=== PATIENT | male | born 1985 | race Caucasian/White ===

== ENCOUNTER 2016-12-22 08:00 | Inpatient (IN) | payer MEDICARE, OTHER ==
[~2016-12-22] VITALS: Ht 170.2 cm; Wt 59.0 kg
--- NOTE | ~2016-12-22 | PN ---
Unit #: [id number] #: [id number] Patient: RICHY SHEPPARD [id number] [facility] [address] [place] [address] [id number] I MR#: [id number] NAME: RICHY SHEPPARD ROOM: 15 Age: 31 Sex: M Admission Date: 12/22/2016 : 1985 Attending Physician: Luís Pedersen M.D. Admitting Physician: Luís Pedersen M.D. Primary Care Physician: Adithya Doctor Not In System [facility] PROGRESS NOTES DATE 12/28/2016 DISCUSSION The patient is beginning to show some signs of improvement when seen today. He is less pressured and tangential and seems more insightful. He is compliant with his aggressively dosed medication and his progress is today encouraging. Dictated by... Luís Pedersen M.D. GERALDINE/sreedhar TD: 12/28/2016 15:36 JOB #: [id number] [facility] PROGRESS NOTES Page 1 of 1 X Luís Pedersen MD PROGRESS NOTE
--- NOTE | ~2016-12-22 | HP ---
Unit #: [id number] #: [id number] Patient: RICHY SHEPPARD [id number] [place] [address] [id number] I MR#: [id number] NAME: RICHY SHEPPARD ROOM: P173 Age: 31 Sex: M Admission Date: 12/22/2016 : 1985 Attending Physician: Luís Pedersen M.D. Admitting Physician: Luís Pedersen M.D. Primary Care Physician: Generic Doctor Not In System HISTORY AND PHYSICAL HISTORY OF PRESENT ILLNESS The patient is a 31-year-old male admitted to [facility] on 12/22/2016 for paranoia and psychosis. When attempting to assess the patient he was extremely psychotic and could not answer questions appropriately. Some information was retrieved from his chart however even on intake information was not able to be obtained. PAST MEDICAL HISTORY None noted. PAST SURGICAL HISTORY None noted. SOCIAL HISTORY He is disabled. He lives with his father, smokes one to three cigarettes per day. FAMILY MEDICAL HISTORY Noncontributory. ALLERGIES Cogentin and meclizine. CURRENT MEDICATIONS 1. Effexor 2. Fioricet 3. Gabapentin 4. Tramadol 5. Mobic 6. Lamictal REVIEW OF SYSTEMS The patient did not answer questions about review of systems. PHYSICAL EXAM GENERAL: He is in no acute distress. VITAL SIGNS: Temperature 97.3, heart rate 66, respiration 16, blood pressure 152/92. HEIGHT: 5'7". WEIGHT: 130 pounds. SKIN: Warm and dry without rash or lesion. HEENT: Normocephalic. TMs not viewed. Oral and nasal passages clear. Conjunctivae clear. PERRLA. EOMs intact. Unit #: [id number] #: [id number] Patient: RICHY SHEPPARD NECK: Supple without lymphadenopathy or thyromegaly. HEART: Regular rate and rhythm without murmur. LUNGS: Clear. ABDOMEN: Soft, nontender. : Not done. EXTREMITIES: No evidence of cyanosis, clubbing or edema. Moves all without focal deficit. NEUROLOGICAL: Grossly within normal limits. Cranial Nerves: II: Visual ba are intact. III, IV AND : Extraocular movements are intact. Pupils are equal, round and reactive to light. V: Facial sensation is grossly normal. VII: Facial movements and expression are normal. VIII: Auditory acuity grossly intact. IX, X: Uvula is midline. Phonation is normal. XI: Patient shrugs shoulders and turns head normally. XII: Tongue protrudes in the midline. Sensory and Motor Function: Sensory and motor sensation is grossly normal. Motor: moves all extremities well. IMPRESSION 1. Psychiatric admission. 2. Psychosis. RECOMMENDATIONS Psychiatric per psychiatrist. MEDICAL: No contraindication to participate in facility activities. MEDICAL PROGNOSIS Fair. MEDICAL CONDITION Stable. Dictated by... Antonella Fitch/kimberlee TD: 12/24/2016 00:12 JOB #: [id number] HISTORY AND PHYSICAL Page 1 of 1 X AVERY GARCIA APRN HISTORY AND PHYSICAL
--- NOTE | ~2016-12-22 | PN ---
Unit #: [id number] #: [id number] Patient: RICHY SHEPPARD [id number] [facility] [address] [place] [address] [id number] I MR#: [id number] NAME: RICHY SHEPPARD ROOM: P256 Age: 31 Sex: M Admission Date: 12/22/2016 : 1985 Attending Physician: Luís Pedersen M.D. Admitting Physician: Luís Pedersen M.D. Primary Care Physician: Generic Doctor Not In System [facility] PROGRESS NOTES DATE 01/02/2017 DISCUSSION The patient remains pleasant and cooperative in his interactions with peers and staff and has shown remarkable degree of improvement from admission when he was floridly psychotic and disorganized. We continue to await word regarding disposition situation which has been worsened given the fact that the patient has lost his identification, cell phone, etc. Dictated by... Luís Pedersen M.D. GERALDINE/magnus TD: 01/02/2017 13:32 JOB #: [id number] [facility] PROGRESS NOTES Page 1 of 1 X Luís Pedersen MD X PROGRESS NOTE
--- NOTE | ~2016-12-22 | PN ---
Unit #: [id number] #: [id number] Patient: RCIHY SHEPPARD [id number] [facility] [address] [place] [address] [id number] I MR#: [id number] NAME: RICHY SHEPPARD ROOM: P256 Age: 31 Sex: M Admission Date: 12/22/2016 : 1985 Attending Physician: Luís Pedersen M.D. Admitting Physician: Luís Pedersen M.D. Primary Care Physician: Generic Doctor Not In System [facility] PROGRESS NOTES DATE 01/07/2017 DISCUSSION The patient continues to sustain progress though he remains seclusive to room and is somewhat more religiously preoccupied when seen today. The patient continues to express a fear of "being out in society" and we continue to hope that placement at [facility] or similar such facility will be positive at the time of discharge. Dictated by... Luís Pedersen M.D. CB/kimberlee TD: 01/07/2017 20:47 JOB #: [id number] [facility] PROGRESS NOTES Page 1 of 1 X Luís Pedersen MD X PROGRESS NOTE
--- NOTE | ~2016-12-22 | PN ---
Unit #: [id number] #: [id number] Patient: RICHY SHEPPARD [id number] [facility] [address] [place] [address] [id number] MR#: [id number] NAME: RICHY SHEPPARD ROOM: P256 Age: 31 Sex: M Admission Date: 12/22/2016 : 1985 Attending Physician: Luís Pedersen M.D. Admitting Physician: Luís Pedersen M.D. Primary Care Physician: Generic Doctor Not In System [facility] PROGRESS NOTES DATE 01/03/2017 DISCUSSION The patient remains pleasant and cooperative in interactions with peers and staff. It is his hope that his belongings, i.e., his cell phone, ID, etc., will be mailed to the hospital which will facilitate disposition. Dictated by... Luís Pedersen M.D. CB/bzg TD: 01/03/2017 14:30 JOB #: [id number] [facility] PROGRESS NOTES Page 1 of 1 X Luís Pedersen MD PROGRESS NOTE
--- NOTE | ~2016-12-22 | PN ---
Unit #: [id number] #: [id number] Patient: RICHY SHEPPARD [id number] [facility] [address] [place] [address] [id number] I MR#: [id number] NAME: RICHY SHEPAPRD ROOM: P131 Age: 31 Sex: M Admission Date: 12/22/2016 : 1985 Attending Physician: Luís Pedersen M.D. Admitting Physician: Luís Pedersen M.D. Primary Care Physician: Generic Doctor Not In System [facility] PROGRESS NOTES DATE 12/25/2016 DISCUSSION The patient has been transferred to the [address] [place] [address] Unit. He remains floridly psychotic and delusional. Further upward titration of Zyprexa will likely be considered. Dictated by... Luís Pedersen M.D. CB/magnus TD: 12/25/2016 14:58 JOB #: [id number] [facility] PROGRESS NOTES Page 1 of 1 X Luís Pedersen MD PROGRESS NOTE
--- NOTE | ~2016-12-22 | PN ---
Unit #: [id number] #: [id number] Patient: RICHY SHEPPARD [id number] [facility] [address] [place] [address] [id number] I MR#: [id number] NAME: RICHY SHEPPARD ROOM: 15 Age: 31 Sex: M Admission Date: 12/22/2016 : 1985 Attending Physician: Luís Pedersen M.D. Admitting Physician: Luís Pedersen M.D. Primary Care Physician: Generic Doctor Not In System [facility] PROGRESS NOTES DATE 12/29/2016 DISCUSSION The patient seems to be sustaining some degree of improvement as he is less disorganized and psychotic during the last couple of days of interview. He does look to be a possible candidate for referral to [facility], and I will write an order requesting this. Dictated by... Luís Pedersen M.D. CB/bzg TD: 12/29/2016 12:43 JOB #: [id number] [facility] PROGRESS NOTES Page 1 of 1 X Luís Pedersen MD PROGRESS NOTE
--- NOTE | ~2016-12-22 | DS ---
Unit #: [id number] #: [id number] Patient: RICHY SHEPPARD [id number] [place] [address] [id number] I MR#: [id number] NAME: RICHY SHEPPARD ROOM: P256 Age: 31 Sex: M Admission Date: 12/22/2016 : 1985 Discharge Date: 01/10/2017 Attending Physician: Luís Pedersen M.D. Primary Care Physician: Generic Doctor Not In System DISCHARGE SUMMARY REASON FOR ADMISSION The patient is a 31-year-old white male admitted to the [address] [place] [address] unit with increased psychosis and depression. HOSPITAL COURSE The patient was admitted to the [address] [place] [address] unit and was initially admitted to the [facility] but transferred to the [address] [place] [address] unit and eventually ended up on the [address] [place] [address]. During his stay in the hospital the patient was continued on previously prescribed medications including Effexor gabapentin, Fioricet, tramadol, Mobic and lamotrigine. As his stay in the hospital progressed his degree of psychosis was such that olanzapine 30 mg at bedtime was added given his profound psychosis. The patient's response to this medication in addition was fairly unremarkable. On admission to the hospital the patient been paranoid, disorganized in his thinking and bizarre in his behavior but by the time of discharge on 01/10 the patient was pleasant and cooperative and fully oriented exhibiting no disorganization of thought or psychosis. His improvement was simply astounding. Arrangements were made with the patient to go to "[facility]" on 01/10 and discharge was ordered. FINAL DIAGNOSIS 1. Schizoaffective disorder. 2. Migraine headache by history. 3. Osteoarthritis by history. 4. History of traumatic corneal injury. DISPOSITION ON DISCHARGE the patient is discharged on the following medications: 1. Zyprexa 30 mg at bedtime for psychosis. 2. Fioricet 1 tab twice daily p.r.n. headache. 3. Neurontin 300 mg twice daily for anxiety. 4. Mobic 15 mg daily for osteoarthritis. 5. Melatonin 3 mg at h.s. p.r.n. insomnia. 6. Effexor XR 150 mg q.a.m. for depression. 7. Artificial tears 1 to 2 drops q 6 hours p.r.n. dry eyes. 8. Fish oil 1,000 mg once daily for mood supplementation. 9. Ultram 50 mg q 8 hours while awake for pain. DIET AND ACTIVITY No dietary or physical restrictions were placed on the patient at the time of discharge. Followup to take place through the auspices of community mental health resources. The patient's prognosis is fair. Unit #: [id number] #: [id number] Patient: RICHY SHEPPARD Dictated by... Luís Pedersen M.D. CB/kimberlee TD: 01/11/2017 01:02 JOB #: [id number] DISCHARGE SUMMARY Page 1 of 1 X Luís Pedersen MD X DISCHARGE SUMMARY
--- NOTE | ~2016-12-22 | PA ---
Unit #: [id number] #: [id number] Patient: RICHY SHEPPARD [id number] [place] [address] [id number] I MR#: [id number] NAME: RICHY SHEPPARD ROOM: P173 Age: 31 Sex: M Admission Date: 12/22/2016 : 1985 Date of Assessment: 12/23/2016 Attending Physician: Luís Pedersen M.D. Admitting Physician: Luís Pedersen M.D. Primary Care Physician: Generic Doctor Not In System PSYCHIATRIC ASSESSMENT IDENTIFYING INFORMATION The patient is a 31-year-old male admitted and transferred from [facility] in [place] after he had presented there exhibiting paranoid thinking. INFORMANT(S) The patient and chart. RELIABILITY Fair. CHIEF COMPLAINT None given. HISTORY OF PRESENT ILLNESS The patient is a 31-year-old white male who is apparently chronically mentally ill. He reports that his last psychiatric hospitalization was at [facility]. The patient reports that he presented to [facility] yesterday after requesting to be taken there. The patient reports that he was feeling that "society is a problem." He has also voiced delusional thinking related to paranoid thoughts. He has apparently been expelled from the domicile he had previously shared with his father in [place], [place] and is presently homeless and has been for some time. The patient has attempted suicide in the past and was supporting positive suicidal ideation at the time of admission. When seen today the patient is evasive and somewhat bizarre and suspicious during interview. He denies abuse of psychoactive substances and admits to recent of methamphetamine. The patient is on a host of psychotropic medications including Effexor, gabapentin and lamotrigine. PAST PSYCHIATRIC HISTORY As above. PAST MEDICAL HISTORY Significant for a history of osteoarthritis. MEDICATIONS 1. Effexor 2. Fioricet 3. Gabapentin 4. Tramadol 5. Mobic 6. Lamotrigine Unit #: [id number] #: [id number] Patient: RICHY SHEPPARD ALLERGIES Meclizine, Cogentin. FAMILY HISTORY A lot of pain. SOCIAL HISTORY The patient reports that he completed his GED and claims to have served in the [employer]. He also claims to have been and . He denies abuse of psychoactive substances. MENTAL STATUS EXAMINATION At this time reveals the patient to be a well-developed, well-nourished male, appearing his stated age. He is in no apparent physical distress at the time of examination. He is awake, alert, and oriented in all spheres. His mood is somewhat suspicious and irritable. His affect blunted. Speech is purposely and frequently evasive. There are no gross deficits to memory or cognition noted. Intelligence is judged to be in the average range based on fund of knowledge. The patient is less than optimally cooperative during interview. He is currently endorsing positive suicidal ideation. He denies homicidal ideation. He reports positive paranoid and grandiose delusional thinking. His insight and judgement are egregiously impaired. ASSETS AND LIABILITIES ASSETS: To be assessed. LIABILITIES: Lack of resources, homelessness, poor compliance of treatment. DIAGNOSTIC IMPRESSION Schizoaffective disorder. Migraine headache. Osteoarthritis. TREATMENT PLAN The patient remains hospitalized for safety and stabilization. I will transfer him to the [address] [place] [address] unit as he is clearly not capable of participating in [facility] programming to any significant degree. The patient will participate in appropriate [place] and milieu activities. I will start Zyprexa 15 mg at bedtime and p.r.n. Zydis has been added. ESTIMATED LENGTH OF STAY Three to five days. Dictated by... Luís Pedersen M.D. GERALDINE/kimberlee TD: 12/23/2016 23:02 JOB #: [id number] Unit #: [id number] #: [id number] Patient: VALARIE,KELBY PSYCHIATRIC ASSESSMENT Page 1 of 1 X Luís Pedersen MD PSYCHIATRIC ASSESSMENT
--- NOTE | ~2016-12-22 | PN ---
Unit #: [id number] #: [id number] Patient: RICHY SHEPPARD [id number] [facility] [address] [place] [address] [id number] MR#: [id number] NAME: RICHY SHEPPARD ROOM: P256 Age: 31 Sex: M Admission Date: 12/22/2016 : 1985 Attending Physician: Luís Pedersen M.D. Admitting Physician: Luís Pedersen M.D. Primary Care Physician: Generic Doctor Not In System [facility] PROGRESS NOTES DATE 01/09/2017 DISCUSSION The patient seems to be sustaining progress. As his progress has improved, the patient now reports that he may be able to live with his or ex- following discharge. I will have the patient's social insurance analyst explore possible transportation options for the patient, and discharge could take place in the next couple of days pending the results of that outcome. Dictated by... Luís Pedersen M.D. CB/magnus TD: 01/09/2017 13:09 JOB #: [id number] [facility] PROGRESS NOTES Page 1 of 1 X Luís Pedersen MD X PROGRESS NOTE
--- NOTE | ~2016-12-22 | PN ---
Unit #: [id number] #: [id number] Patient: RICHY SHEPPARD [id number] [facility] [address] [place] [address] [id number] I MR#: [id number] NAME: RICHY SHEPPARD ROOM: 73 Age: 31 Sex: M Admission Date: 12/22/2016 : 1985 Attending Physician: Luís Pedersen M.D. Admitting Physician: Luís Pedersen M.D. Primary Care Physician: Generic Doctor Not In System [facility] PROGRESS NOTES DATE 12/24/2016 DISCUSSION The patient remains floridly psychotic and intrusive during this physician's attempted rounds on the unit. I will increase his Zyprexa dose to 20 mg at h.s. and we hope to transfer him to the [address] [place] [address] unit for a more appropriate milieu in the very near future. Dictated by... Luís Pedersen M.D. CB/sreedhar TD: 12/24/2016 14:17 JOB #: [id number] [facility] PROGRESS NOTES Page 1 of X Luís Pedersen MD X PROGRESS NOTE
--- NOTE | ~2016-12-22 | PN ---
Unit #: [id number] #: [id number] Patient: RICHY SHEPPARD [id number] [facility] [address] [place] [address] [id number] MR#: [id number] NAME: RICHY SHEPPARD ROOM: P256 Age: 31 Sex: M Admission Date: 12/22/2016 : 1985 Attending Physician: Luís Pedersen M.D. Admitting Physician: Luís Pedersen M.D. Primary Care Physician: Generic Doctor Not In System [facility] PROGRESS NOTES DATE 01/06/2017 DISCUSSION The patient has continued to show signs of improvement. He is today active within the therapeutic milieu participating in programming and is expressing future orientation regarding receipt of his belongings sent by his father and his plan to live in [place] following discharge. We continue current treatment and expect discharge to take place sometime this week. Dictated by... Luís Pedersen M.D. CB/kimberlee TD: 01/06/2017 22:59 JOB #: [id number] [facility] PROGRESS NOTES Page 1 of 1 X Luís Pedersen MD X PROGRESS NOTE
--- NOTE | ~2016-12-22 | PN ---
Unit #: [id number] #: [id number] Patient: RICHY SHEPPARD [id number] [facility] [address] [place] [address] [id number] I MR#: [id number] NAME: RICHY SHEPPARD ROOM: P256 Age: 31 Sex: M Admission Date: 12/22/2016 : 1985 Attending Physician: Luís Pedersen M.D. Admitting Physician: Luís Pedersen M.D. Primary Care Physician: Adithya Doctor Not In System [facility] PROGRESS NOTES DATE 12/31/2016 DISCUSSION The patient has requested an increase in his Effexor dose to 150 mg daily. We will go ahead and increase that dose. I have asked the patient's professor of social work to see him regarding a possible referral to [facility]. Dictated by... Luís Pedersen M.D. CB/kimberlee TD: 12/31/2016 20:51 JOB #: [id number] [facility] PROGRESS NOTES Page 1 of 1 X Luís Pedersen MD PROGRESS NOTE
--- NOTE | ~2016-12-22 | PN ---
Unit #: [id number] #: [id number] Patient: RICHY SHEPPARD [id number] [facility] [address] [place] [address] [id number] I MR#: [id number] NAME: RICHY SHEPPARD ROOM: P256 Age: 31 Sex: M Admission Date: 12/22/2016 : 1985 Attending Physician: Luís Pedersen M.D. Admitting Physician: Luís Pedersen M.D. Primary Care Physician: Generic Doctor Not In System [facility] PROGRESS NOTES DATE 01/01/2017 DISCUSSION The patient's presentation is about the same. He is maintaining a degree of (1) __ insight, but his speech is much less disorganized as is his thought. We have restarted Effexor at his request and await word regarding a possible [facility] referral. Dictated by... Luís Pedersen M.D. CB/bzmor TD: 01/01/2017 14:31 JOB #: [id number] [facility] PROGRESS NOTES Page 1 of 1 X Luís Pedersen MD PROGRESS NOTE
--- NOTE | ~2016-12-22 | PN ---
Unit #: [id number] #: [id number] Patient: RICHY SHEPPARD [id number] [facility] [address] [place] [address] [id number] I MR#: [id number] NAME: RICHY SHEPPARD ROOM: 15 Age: 31 Sex: M Admission Date: 12/22/2016 : 1985 Attending Physician: Luís Pedersen M.D. Admitting Physician: Luís Pedersen M.D. Primary Care Physician: Generic Doctor Not In System [facility] PROGRESS NOTES DATE 12/27/2016 DISCUSSION The patient remains floridly psychotic. He remains quite paranoid that he is being listened to in his room and all of this in spite of very aggressive pharmacotherapy. The degree of the patient's psychosis almost reaches a point where one wonders if he is fabricating some of these symptoms. Dictated by... Luís Pedersen M.D. CB/sreedhar TD: 12/27/2016 15:19 JOB #: [id number] [facility] PROGRESS NOTES Page 1 of 1 X Luís Pedersen MD PROGRESS NOTE
--- NOTE | ~2016-12-22 | PN ---
Unit #: [id number] #: [id number] Patient: RICHY SHEPPARD [id number] [facility] [address] [place] [address] [id number] I MR#: [id number] NAME: RICHY SHEPPARD ROOM: P256 Age: 31 Sex: M Admission Date: 12/22/2016 : 1985 Attending Physician: Lusí Pedersen M.D. Admitting Physician: Luís Pedersen M.D. Primary Care Physician: Generic Doctor Not In System [facility] PROGRESS NOTES DATE 12/30/2016 DISCUSSION The patient seems to be sustaining improvement. He has been transferred to the [address] [place] [address] unit given some issues with patient's confidentiality. I will ask his psychosocial rehabilitation counselor to see him regarding possible referral to [facility] as a step-down from this level of care if he continues to sustain progress. Dictated by... Luís Pedersen M.D. CB/kimberlee TD: 12/30/2016 21:58 JOB #: [id number] [facility] PROGRESS NOTES Page 1 of 1 X Luís Pedersen MD X PROGRESS NOTE
--- NOTE | ~2016-12-22 | PN ---
Unit #: [id number] #: [id number] Patient: RICHY SHEPPARD [id number] [facility] [address] [place] [address] [id number] I MR#: [id number] NAME: RICHY SHEPPARD ROOM: P256 Age: 31 Sex: M Admission Date: 12/22/2016 : 1985 Attending Physician: Luís Pedersen M.D. Admitting Physician: Luís Pedersen M.D. Primary Care Physician: Generic Doctor Not In System [facility] PROGRESS NOTES DATE 01/04/2017 DISCUSSION The patient remains pleasant and cooperative in his interactions with this physician, peers, and staff. His psychosis appears to essentially jose miguel it, but we continue to await word regarding what disposition is possible for the patient. Dictated by... Luís Pedersen M.D. GERALDINE/magnus TD: 01/04/2017 14:00 JOB #: [id number] [facility] PROGRESS NOTES Page 1 of 1 X Luís Pedersen MD PROGRESS NOTE
--- NOTE | ~2016-12-22 | PN ---
Unit #: [id number] #: [id number] Patient: RICHY SHEPPARD [id number] [facility] [address] [place] [address] [id number] I MR#: [id number] NAME: RICHY SHEPPARD ROOM: P256 Age: 31 Sex: M Admission Date: 12/22/2016 : 1985 Attending Physician: Luís Pedersen M.D. Admitting Physician: Luís Pedersen M.D. Primary Care Physician: Generic Doctor Not In System [facility] PROGRESS NOTES DATE 01/05/2017 DISCUSSION The patient's participation within the therapeutic milieu is a bit less than optimal, but he is otherwise pleasant and cooperative, and amazingly improved from admission. Disposition remains problematic given the patient's lack of idea, etc., but we are working towards this and hope to have the patient out of the hospital within the next few days. We are working towards a [facility] referral. Dictated by... Luís Pedersen M.D. CB/magnus TD: 01/05/2017 11:13 JOB #: [id number] [facility] PROGRESS NOTES Page 1 of 1 X Luís Pedersen MD X PROGRESS NOTE
--- NOTE | ~2016-12-22 | PN ---
Unit #: [id number] #: [id number] Patient: RICHY SHEPPARD [id number] [facility] [address] [place] [address] [id number] I MR#: [id number] NAME: RICHY SHEPPARD ROOM: 15 Age: 31 Sex: M Admission Date: 12/22/2016 : 1985 Attending Physician: Luís Pedersen M.D. Admitting Physician: Luís Pedersen M.D. Primary Care Physician: Generic Doctor Not In System [facility] PROGRESS NOTES DATE 12/26/2016 DISCUSSION The patient remains floridly psychotic. Today he requested this physician purchase him "a hoodie of any color" so that he can "hide his identity. I will continue upward titration in Zyprexa today maximizing the patient's dose to a total of 30 mg daily in divided dose. Dictated by... Luís Pedersen M.D. CB/magnus TD: 12/26/2016 14:16 JOB #: [id number] [facility] PROGRESS NOTES Page 1 of 1 X Luís Pedersen MD X PROGRESS NOTE
[2016-12-23 11:10] LABS: ALBUMIN SERUM 4.7 g/dL (3.5-5.0); BILIRUBIN,TOTAL 0.5 mg/dL (0.2-2.0); BUN/CREATININE RATIO 17.5; CREATININE SERUM 0.8 mg/dL (0.6-1.4); GLOM FILT RATE Estimated 119.9 mL/min (>60); POTASSIUM 4.2 mmol/L (3.5-5.1); PROTEIN TOTAL SERUM 6.8 g/dL (6.0-8.3)
[2016-12-23 11:17] LABS: BASOPHIL# 0.1 X10e3 (0-0.3); BASOPHIL% 0.6 % (0-2.5); EOSINOPHIL# 0.1 X10e3 (0-0.7); EOSINOPHIL% 1.1 % (0.0-7.0); HEMATOCRIT 46.9 % (38.0-50.0); HEMOGLOBIN 16.2 gm/dL (13.0-16.0); LYMPHOCYTE# 2.6 X10e3 (1.0-3.5); LYMPHOCYTE% 27.8 % (17.0-45.0); MEAN CELL VOLUME 90.9 FL (83-96); MEAN CORPUSCULAR HEMOGLOBIN 31.3 PG (28-34); MEAN CORPUSCULAR HGB CONC 34.5 g/dL (30-36); MEAN PLATELET VOLUME 8.2 FL (6.5-11.5); MONOCYTE# 0.8 X10e3 (0-1.0); MONOCYTE% 8.2 % (3.0-12.0); NEUTROPHIL# 5.8 X10e3 (1.5-7.1); NEUTROPHIL% 62.3 % (40-75); PLATELET COUNT 221 X10e3 (140-420); RED BLOOD COUNT 5.15 X10e (3.90-5.60); RED CELL DISTRIBUTION WIDTH 13.6 % (11.0-15.5); WHITE BLOOD COUNT 9.3 X10e3 (4.0-10.5)
[2016-12-23 11:20] LABS: DIFF IND NO
== END 2017-01-10 13:30 | disposition short-term general hospital (02) | DRG 885 ==
LOC: P1E 12:01 → P1S 12-24 16:19 → POF 12-30 10:58 → P2L 12-30 11:01
PROVIDERS: Specialist
DX: F25.9 Schizoaffective disorder, unspecified (principal); G43.909 Migraine, unspecified, not intractable, without status migrainosus; M19.90 Unspecified osteoarthritis, unspecified site
CPT/HCPCS: 80053; 85025